=== PATIENT | female | born 1955 | race Caucasian/White ===

== ENCOUNTER 2019-02-21 18:32 | Inpatient (IN) | payer BC ==
[~2019-02-21] VITALS: Ht 149.9 cm; Wt 62.7 kg
[~2019-02-21 18:32] MED LIST changes: -QVAR REDIHALE10.6 G1 INH; -Ventolin/Prove6.7 GM INH
[2019-02-21] MEDS ORDERED: QVAR REDIHALE10.6 G1 INH (21:58)
[2019-02-21] MEDS ORDERED: Ventolin/Prove6.7 GM INH (21:58)
--- NOTE | 2019-02-22 01:13 | NUR ---
02/21/19 2310 Patient was received via stretcher to room 343 from ER. Pt is alert and oriented. Pt is very quiet, states she does have some anxiety. Patient with o2 at 3 liters. Breath sounds are inspiratory and expiratory wheezes course throughout. Pt has a productive cough. Pt is resting quietly. Call light in reach.
[2019-02-22 02:54] LABS: Adenovirus Not Detected (NOT DETECT); Bordetella pertussis Not Detected (NOT DETECT); Chlamydophila pneumoniae Not Detected (NOT DETECT); Coronavirus 229E Not Detected (NOT DETECT); Coronavirus HKU1 Not Detected (NOT DETECT); Coronavirus NL63 Not Detected (NOT DETECT); Coronavirus OC43 Not Detected (NOT DETECT); Human Metapneumovirus Not Detected (NOT DETECT); Human Rhinovirus/Enterovirus Detected (NOT DETECT); Influenza A Not Detected (NOT DETECT); Influenza A/2009-H1 Not Detected (NOT DETECT); Influenza A/H1 Not Detected (NOT DETECT); Influenza A/H3 Not Detected (NOT DETECT); Influenza B Not Detected (NOT DETECT); Mycoplasma pneumoniae Not Detected (NOT DETECT); Parainfluenza Virus 1 Not Detected (NOT DETECT); Parainfluenza Virus 2 Not Detected (NOT DETECT); Parainfluenza Virus 3 Not Detected (NOT DETECT); Parainfluenza Virus 4 Not Detected (NOT DETECT); Respiratory Syncytial Virus Not Detected (NOT DETECT)
[2019-02-22 05:13] LABS: Hematocrit 45.7 % (33.0-51.0); Hemoglobin 14.9 g/dL (11.5-16.0); Mean Corpuscular HGB 30.5 pg (26.0-34.0); Mean Corpuscular HGB Conc 32.6 g/dL (31.5-36.5); Mean Corpuscular Volume 94 fL (80-100); Mean Platelet Volume 10.3 fL (9.1-12.4); Platelet Count 248 K/mm3 (150-400); RDW Coefficient Variation 13.2 % (11.7-14.2); RDW Standard Deviation 45.1 fL (35.1-46.3); Red Blood Cell Count 4.89 M/mm3 (3.80-5.20)
[2019-02-22 05:37] LABS: Alanine Aminotransfer (ALT/SGP 22 U/L (12-78); Albumin, Blood 3.2 g/dL (3.4-5.0); Alk Phos 99 U/L (50-136); Anion Gap 5 mmol/L (6-16); Aspartate Aminotrans (AST/SGOT 14 U/L (12-37); Bilirubin, Total 0.3 mg/dL (0.1-1.0); Blood Urea Nitrogen 21 mg/dL (8-24); Bun/Creatinine Ratio 31.7 (12.0-20.0); CO2, Blood 26 mmol/L (21-32); Chloride, Blood 107 mmol/L (98-108); Creatinine, Blood 0.66 mg/dL (0.40-1.00); Globulin, Blood 3.3 g/dL (2.2-4.0); Glomerular Filtration Rate >60 (60-); Glucose, Blood 168 mg/dL (70-99); Potassium, Blood 4.1 mmol/L (3.5-5.5); Sodium, Blood 138 mmol/L (136-145); Total Protein, Blood 6.5 g/dL (6.4-8.2)
--- NOTE | 2019-02-22 06:28 | NUR ---
Patient has rested well the second half of shift. Pt is up to the BR with stand by assist. Patient lungs are less wheezy this am. Pt remains on 3 liters O2 and sats are above 90%. Resp rate 18. Pt has had no c/o pain or anxiety. Call light remains in reach.
--- NOTE | 2019-02-22 16:58 | NUR ---
SHIFT SUMMARY PT IND IN RM. TOLERATING FOOD AND PO FLUIDS. HAS BEEN ON 3L O2 NC TO MAINTAIN 91-93%. DAUGHTER HAS BEEN IN RM TODAY. PLAN IS TO CONTINUE RT TREATMENTS AND IV SOLUMEDROL. PT DID WALK OUTSIDE WITH DAUGHTER TODAY AND TOLERATED WELL WITH O2.
--- NOTE | 2019-02-23 05:30 | NUR ---
SHIFT SUMMARY AOX4, VS STABLE, DENIES N/V. REPORTS PAIN R/T HEADACHE, MEDICATED 1X W/TYLENOL PER ORDERS. ON 2L O2 VIA NC, REPORTS DYSPNEA HAS IMPROVED & DENIES FEELING DYSPNIC @REST, LUNGS SOUND WHEEZY THROUGHOUT, HAS HARSH DRY HACKING COUGH W/NO MUCUS PRODUCTION @THIS TIME. SOLUMEDEROL, BREATHING TX & MUCINEX GIVEN PER ORDERS. CALL LIGHT IN REACH & I WILL CONTINUE TO MONITOR UNTIL DAY SHIFT RN ASSUMES CARE.
--- NOTE | 2019-02-23 09:00 | NUR ---
PT PLEASANT COOP A/O. PT LYING IN BED. DENIES PIAN. SOME COUGH. OCC. SCANT TORRES SPUTUM. PENDING SAMPLE. CUP GIVEN. DAUGHTER, KEIRA, IN ROOM. H/R REG, NO MURMER NOTED. PER TELE S TACH AT 111. LUNGS INSP WHEEZES T/O. ABLE TO TALK 4-5 WORD SENTENCES WITHOUT DISTRESS. COUGHS WITH DEEP BREATHS. ON 2L 02. RESP EASY, UNLABORED. PT STATES STILL SMOKES. TALKED TO HER ABOUT QUITTING AND COPD EXACERBATIONS WORSE WITH SMOKING. BT X4 LAST BM TODAY. LOOSE. VOIDS PER BATHROOM. INDEPENDANT IN ROOM . BED IN LOW POSTIOIN, CALL LITE IN REACH, CALLS APPROP
--- NOTE | 2019-02-23 14:45 | NUR ---
Patient is sitting on EOB and alert. Patient openly shares about her health struggles since moving to [place], about her family and work history and about the recent of the love of her life. I also explore patient's caodaism background. Patient says that she is Baptized [employer] but as of recent has been studying with the [employer]hov[employer] Witness group. Patient loves being in [place] and living with her daughter and desires to stay. I listen empathically and provide pastoral supervisor counseling and guidance, grief support and prayer. Patient responds well and shows signs of an elevated mood. Patient voices appreciation for the visit.
--- NOTE | 2019-02-23 19:23 | NUR ---
PT PLEASANT TODAY. DENIES PAIN. O2 STAYED ON AT 2L AND SATS AVERAGING >91-92 % THIS LARA. H/R LIGHTLY TACHY AFTER BREATHIGN TX AND STEROIDS. NO OTHER CONCERNS AT THIS TIME. BED IN LOW POSITION, CALL LITE IN REAC, CALLS APPROP
[2019-02-24 05:33] LABS: Albumin, Blood 3.3 g/dL (3.4-5.0); Anion Gap 3 mmol/L (6-16); Blood Urea Nitrogen 21 mg/dL (8-24); Bun/Creatinine Ratio 32.8 (12.0-20.0); CO2, Blood 31 mmol/L (21-32); Chloride, Blood 105 mmol/L (98-108); Creatinine, Blood 0.64 mg/dL (0.40-1.00); Glomerular Filtration Rate >60 (60-); Glucose, Blood 142 mg/dL (70-99); Phosphorus, Blood 3.5 mg/dL (2.5-4.9); Potassium, Blood 4.5 mmol/L (3.5-5.5); Sodium, Blood 139 mmol/L (136-145)
--- NOTE | 2019-02-24 06:43 | NUR ---
SHIFT SUMMARY PT A/O INDEPENDENT. 1.5L O2 NC. LUNG SOUNDS COURSE AND WHEEZY. OCCASIONAL HARSH DRY HACKING NONPRODUCTIVE COUGH. TELE SHOWING SINUS TACH @ 109. SHE WAS ABLE TO SLEEP T/O NIGHT. CALL LIGHT IN REACH.
--- NOTE | 2019-02-24 18:03 | NUR ---
PT AO X 4 AND COOPERATIVE OF CARE. PT CONTINUE TO HAVE WHEEZING SOUNDS THROUGHOUT AND HAS A VERY COURSE COUGH. SPUTUM HAS NOT BEEN COLLECTED SHE HAS NOT GOTTEN A GOOD SAMPLE. PT SITS UP AT THE SIDE OF HER BED A LOT FOR EASIER BREATHING. PT DID REQUEST ON PRN BREATHING TREATMENT IN THE FIRST HALF OF THE SHIFT AND THIS SEEMED TO HELP HER. INDEPENDENT IN ROOM, WILL CONTINUE TO MONITOR.
--- NOTE | 2019-02-25 06:31 | NUR ---
SHIFT SUMMARY PT A/O INDEPENDENT TO BA. 1.5L O2 NC STILL REQUIRED TO KEEP O2 ABOVE 90%. OCCASIONAL HARSH HACKING COUGH, MOSTLY NONPRODUCTIVE. SHE WAS ABLE TO SLEEP T/O THE NIGHT. GETTING SCHEDULED BREATHING TX. LUNGS SOUNDS WHEEZY AND COURSE. NO C/O PAIN. CALL LIGHT IN REACH.
--- NOTE | 2019-02-25 19:23 | NUR ---
SHIFT SUMMARY: NO ACUTE CHANGES TO REPROT THIS SHIFT. PT A&O; CALM AND COOEPRATIVE WITH CARE. NO C/O PAIN OR NAUSEA THIS SHIFT. TELE D/C'd THIS SHIFT. O2 @ 3L; PT ON ROOM AIR AT HOME; HARSH COUGH; EXPIRATORY WHEEZES; IV STEROIDS CONTINUING; R/T FOLLOWING. REPORT GIVEN TO ON COMING RN.
[2019-02-26 05:15] LABS: Albumin, Blood 3.2 g/dL (3.4-5.0); Anion Gap 5 mmol/L (6-16); Blood Urea Nitrogen 24 mg/dL (8-24); Bun/Creatinine Ratio 35.2 (12.0-20.0); CO2, Blood 31 mmol/L (21-32); Calcium, Blood 8.6 mg/dL (8.5-10.1); Chloride, Blood 103 mmol/L (98-108); Creatinine, Blood 0.68 mg/dL (0.40-1.00); Glomerular Filtration Rate >60 (60-); Glucose, Blood 131 mg/dL (70-99); Phosphorus, Blood 3.6 mg/dL (2.5-4.9); Potassium, Blood 4.4 mmol/L (3.5-5.5); Sodium, Blood 139 mmol/L (136-145)
--- NOTE | 2019-02-26 05:26 | NUR ---
SHIFT SUMMARY PT HAD UNEVENTFUL NIGHT. REMAINED ON 3 L THROUGHOUT THE NIGHT. O2 SATS 94% THIS AM. LUNG SOUNDS WHEEZY THROUGHOUT, HOWEVER PT REPORTS FEELING AN IMPROVEMENT IN HER BREATHING. PT SLEPT WELL THROUGH MUCH OF THE NIGHT. NO COMPLAINTS OF PAIN. VITAL SIGNS STABLE. WILL CONTINUE TO MONITOR AND REPORT TO DAY RN.
--- NOTE | 2019-02-26 17:35 | NUR ---
PATIENT A/OX4, UP INDPENDENTLY IN ROOM. O2 WEANED FROM 3LO2 TO 1L THIS SHIFT, SATS 93%. CONTINUES TO HAVE A HARSH CONGESTED COUGH. NEED TO COLLECT A SPUTUM SAMPLE IF ABLE. DENIES ANY PAIN. CALM AND COOPERATIVE WITH CARE, CALLS APPROPRIATELY FOR ASSISTANCE. 22G IV TO R FA WNL AND SL.
--- NOTE | 2019-02-27 04:49 | NUR ---
SHIFT SUMMARY PT HAD UNEVENTFUL NIGHT. REMAINED ON 1 L THROUGHOUT THE NIGHT. O2 SATS REMAINED IN THE LOWER 90'S. PT SLEPT WELL AND REPORTS FEELING HER BREATHING IMPROVING EACH DAY. LUNG SOUNDS REMAIN WHEEZY BUT LESS SO THAN NIGHT BEFORE. HARSH NON PRODUCTIVE COUGH AT TIMES. NO COMPLAINTS OF PAIN. VITAL SIGNS STABLE. WILL CONTINUE TO MONITOR.
[2019-02-27] MEDS ORDERED: ACET325 PO (11:12)
[2019-02-27] MEDS ORDERED: Budesonide0.5 MG/2 M INH (11:12)
[2019-02-27] MEDS ORDERED: GUAI600T33 PO (11:13)
[2019-02-27] MEDS ORDERED: ALBU3IS INH (11:13)
[2019-02-27] MEDS ORDERED: Prednisone10 MG PO (11:14)
[2019-02-27] MEDS ORDERED: Nicoderm Cq1 EAC1 PO (11:14)
--- NOTE | 2019-02-27 13:00 | NUR ---
PATIENT D/C'D TO HOME. RX MEDICATIONS FAXED TO [facility] AND HARD SCRIPT FOR NEBULIZER GIVEN TO PATIENT. D/C INSTRUCTIONS AND EDUCATION DISCUSSED WITH PATIENT AND COPY PROVIDED. PATIENT TO FOLLOW UP WITH DR. ASHBY IN 3 DAYS, INSTRUCTED TO RETURN TO URGENT CARE IF UNABLE TO GET AN APPOINTMENT THAT SOON FOR A FOLLOW UP CHECK.
== END 2019-02-27 13:04 | disposition home or self-care (01) | DRG 189 ==
LOC: ER 18:32 → MEDS 22:35
PROVIDERS: Internal Medicine; ADMIT Internal Medicine
DX: J96.01 Acute respiratory failure with hypoxia (principal); J44.1 Chronic obstructive pulmonary disease with (acute) exacerbation; J44.0 Chronic obstructive pulmonary disease with (acute) lower respiratory infection; B34.1 Enterovirus infection, unspecified; B34.8 Other viral infections of unspecified site; J20.8 Acute bronchitis due to other specified organisms; F17.210 Nicotine dependence, cigarettes, uncomplicated
CPT/HCPCS: 0099U; 36415; 80053; 80069; 85027; 93005; 93010; 94640; 94644; 94664; 94760; 94761; 98960; 99285-25; A9270; J1650; J2920; J2930

== ENCOUNTER → 2019-02-21 | Outpatient (CLI) | payer BC ==
[~2019-02-21] MED LIST: BENADRYL25 MG PO; EPIPEN 2-P0.3 MG/0.3 IM; Prednisone20 MG PO; QVAR REDIHALE10.6 G1 INH; Ventolin/Prove6.7 GM INH
[2019-02-21 17:36] LABS: BASOPHILS ABSOLUTE AUTO 0.08 K/mm3 (0.00-0.23); BASOPHILS PERCENT AUTO 1 % (0-2); EOSINOPHILS ABSOLUTE AUTO 0.31 K/mm3 (0.00-0.68); EOSINOPHILS PERCENT AUTO 3 % (0-6); Hematocrit 47.3 % (33.0-51.0); Hemoglobin 15.7 g/dL (11.5-16.0); IMMATURE GRAN ABSOLUTE AUTO 0.02 K/mm3 (0.00-0.10); IMMATURE GRAN PERCENT AUTO 0 % (0-1); LYMPHOCYTES ABSOLUTE AUTO 2.35 K/mm3 (0.84-5.20); LYMPHOCYTES PERCENT AUTO 24 % (21-46); MONOCYTES ABSOLUTE AUTO 0.71 K/mm3 (0.16-1.47); MONOCYTES PERCENT AUTO 7 % (4-13); Mean Corpuscular HGB Conc 33.2 g/dL (31.5-36.5); Mean Corpuscular Volume 93 fL (80-100); Mean Platelet Volume 10.2 fL (9.1-12.4); NEUTROPHILS ABSOLUTE AUTO 6.34 K/mm3 (1.96-9.15); NEUTROPHILS PERCENT AUTO 65 % (41-73); Platelet Count 271 K/mm3 (150-400); RDW Coefficient Variation 13.2 % (11.7-14.2); Red Blood Cell Count 5.07 M/mm3 (3.80-5.20); White Blood Cell Count 9.81 K/mm3 (4.00-11.30)
[2019-02-21 17:47] LABS: Alanine Aminotransfer (ALT/SGP 19 U/L (12-78); Albumin, Blood 3.7 g/dL (3.4-5.0); Albumin/Globulin Ratio 1.1 (0.8-1.8); Alk Phos 105 U/L (40-126); Anion Gap 8 mmol/L (6-16); Aspartate Aminotrans (AST/SGOT 19 U/L (12-37); Bilirubin, Total 0.6 mg/dL (0.1-1.0); Blood Urea Nitrogen 16 mg/dL (8-24); Bun/Creatinine Ratio 21.9 (12.0-20.0); CO2, Blood 29 mmol/L (21-32); Calcium, Blood 8.7 mg/dL (8.5-10.1); Chloride, Blood 104 mmol/L (98-108); Creatinine, Blood 0.73 mg/dL (0.40-1.00); Globulin, Blood 3.5 g/dL (2.2-4.0); Glomerular Filtration Rate >60 (60-); Glucose, Blood 100 mg/dL (70-99); Potassium, Blood 3.8 mmol/L (3.5-5.5); Sodium, Blood 141 mmol/L (136-145); Total Protein, Blood 7.2 g/dL (6.4-8.2)
== END ==
LOC: LAB EV 17:33 → LAB SHORT 17:33
PROVIDERS: Emergency Medicine
DX: R06.02 Shortness of breath (principal)
CPT/HCPCS: 80053; 85025

== ENCOUNTER 2019-09-21 19:19 | Emergency (ER) | payer BC ==
[~2019-09-21] VITALS: Ht 180.3 cm; Wt 65.8 kg
[~2019-09-21 19:19] MED LIST changes: +ACET325 PO; +ALBU3IS INH; +Budesonide0.5 MG/2 M INH; +GUAI600T33 PO; +Nicoderm Cq1 EAC1 PO; +Prednisone10 MG PO; +QVAR REDIHALE10.6 G1 INH; +Ventolin/Prove6.7 GM INH
[2019-09-21] MEDS ORDERED: BUPROPION XL150 M1 PO (19:43)
[2019-09-21] MEDS ORDERED: MONT10T PO (19:44)
[2019-09-21] MEDS ORDERED: EPIPEN0.3 MG/0.3 IM (21:15)
== END 2019-09-21 21:33 | disposition home or self-care (01) ==
LOC: ER 19:19
DX: R06.2 Wheezing (principal); T44.5X5A Adverse effect of predominantly beta-adrenoreceptor agonists, initial encounter; J44.9 Chronic obstructive pulmonary disease, unspecified; Z88.5 Allergy status to narcotic agent; Z91.018 Allergy to other foods; Z79.899 Other long term (current) drug therapy; F17.210 Nicotine dependence, cigarettes, uncomplicated
CPT/HCPCS: 36415; 94640; 96374; 96375; 99283-25; J1100